=== PATIENT | female | born 1975 | race Caucasian/White ===

== ENCOUNTER 2018-08-04 10:00 | Emergency (ER) | payer MEDICAID, OTHER ==
[~2018-08-04] VITALS: Ht 167.6 cm; Wt 73.0 kg
--- NOTE | 2018-08-04 11:36 | Diagnostic Imaging Report ---
INDICATION: Fall with pain to the wrist, injury was sustained one month ago. FINDINGS: Transversely oriented fracture of the scaphoid waist with no bony bridging of fracture fragments, mildly diastased by about 1.7 mm. No evidence for necrosis or volume loss of the proximal pole. Scapholunate joint space is maintained. The remaining proximal and distal carpal row appeared normal. The metacarpals, distal radius and distal ulna intact. IMPRESSION: Unhealed scaphoid waist fracture with mild fragmental diastasis. No other injury demonstrated. Dictated by: Dictated on workstation # [id number]
--- NOTE | 2018-08-04 11:40 | Diagnostic Imaging Report ---
INDICATION: Fall. Left elbow pain. FINDINGS: Alignment of the elbow appears normal. There is a normal anterior humeral and radiocapitellar line. There is no elevation of fat pads to suggest the presence of joint effusion. No acute fracture evident. Soft tissues unremarkable. IMPRESSION: Negative radiographs of left elbow. Dictated by: Dictated on workstation # [id number]
[2018-08-04] MEDS ORDERED: ACHD5005 PO (12:01)
--- NOTE | 2018-08-04 12:01 | ED Upper Extremity ---
General Chief Complaint: Upper Extremity Stated Complaint: R WRIST AND L ARM PAIN Nursing Triage Note: pt reports r wrist pain from fall a month ago and l elbow pain x 1 month but no known injury. pt reports recent generalized joint pain Nursing Sepsis Screen: No Definite Risk Source: patient Exam Limitations: no limitations History of Present Illness Date Seen by Provider: Aug 04, 2018 Time Seen by Provider: 11:00 Allergies and Home Medications Allergies Coded Allergies: No Known Drug Allergies (Unverified , 08/04/18) Home Medications No Active Prescriptions or Reported Meds Past Irvtzhj-Oekisz-Epgbtz Hx Patient Social History Alcohol Use: Denies Use Recreational Drug Use: No Smoking Status: Current Everyday Smoker Type Used: Cigarettes Recent Foreign Travel: No Contact w/Someone Who Travel: No Recent Infectious Disease Expo: No Recent Hopitalizations: No Physical Abuse: No Sexual Abuse: No Mistreated: No Fear: No Seasonal Allergies Seasonal Allergies: No Past Medical History Surgeries: Yes Section, Hysterectomy, Oophorectomy Respiratory: No Cardiac: No Neurological: No Genitourinary: No Gastrointestinal: No Musculoskeletal: No Endocrine: Yes (graves dz) Cancer: No Psychosocial: No Integumentary: No Physical Exam Vital Signs Vital Signs - First Documented 08/04/18 10:39 Temp 97.2 Pulse 78 Resp 16 B/P (MAP) 108/84 (92) Pulse Ox 97 Capillary Refill : Less Than 3 Seconds Height, Weight, BMI Height: 5'6.00" Weight: 161lbs. oz. 73.789842rn; BMI Method:Stated Progress/Results/Core Measures Results/Orders My Orders Orders - SMOOTH WOO Elbow, Left, 3 Views (08/04/18 11:00) Wrist, Right, 3 Views Or More (08/04/18 11:00) Vital Signs/I&O 08/04/18 10:39 Temp 97.2 Pulse 78 Resp 16 B/P (MAP) 108/84 (92) Pulse Ox 97 Blood Pressure Mean: 92 Departure Impression Primary Impression: Scaphoid fracture of wrist Disposition: 01 HOME, SELF-CARE Condition: Stable/Unchanged Departure-Patient Inst. Decision time for Depature: 11:56 Referrals: NO,LOCAL PHYSICIAN (PCP) Primary Care Physician MARANDA HERNANDEZ MD Patient Instructions: LOCAL PHYSICIAN LIST, Wrist Fracture (DC) Add. Discharge Instructions: Take medication as directed. Ice to the sore areas for 20 minute intervals. Wear the wrist splint you follow up. You may use Tylenol and ibuprofen as needed for pain relief. Take the pain medication for pain unrelieved by Tylenol and ibuprofen. Follow-up with an orthopedic surgeon of your choosing within 1 week for recheck. Call first thing 06/07/18. Return back to the emergency room for any worsening symptoms or concerns as needed. All discharge instructions reviewed with patient and/or family. Voiced understanding. Scripts Hydrocodone Bit/Acetaminophen (Hydrocodone/Acetaminophen 5/325mg Tablet) 1 Tab Tab 1 EACH PO Q4-6HR PRN for PAIN-MODERATE MDD 10, #14 TAB Prov: SMOOTH WOO 08/04/18 SMOOTH WOO Aug 04, 2018 12:01
[2018-08-04 12:10] VITALS: BP 125/84
== END 2018-08-04 12:09 | disposition home or self-care (01) ==
LOC: ER 10:03
DX: S62.001A Unspecified fracture of navicular [scaphoid] bone of right wrist, initial encounter for closed fracture (principal); E05.00 Thyrotoxicosis with diffuse goiter without thyrotoxic crisis or storm; F17.210 Nicotine dependence, cigarettes, uncomplicated; Z90.710 Acquired absence of both cervix and uterus; W18.39XA Other fall on same level, initial encounter
CPT/HCPCS: 73080; 73110